=== PATIENT | female | born 1995 | race African-American/Black ===

== ENCOUNTER 2018-01-27 00:26 | Emergency (ER) | payer MEDICAID ==
[~2018-01-27] VITALS: Ht 152.4 cm; Wt 68.2 kg
[~2018-01-27 00:26] MED LIST: ACETAMINOPHEN325 MG; PRENATAL COMPLE1 TAB PO
[2018-01-27 00:40] VITALS: Ht 152.4 cm; Wt 68.2 kg
[2018-01-27] MEDS ORDERED: CYCLOBENZAPRINE10 MG PO (01:34)
[2018-01-27] MEDS ORDERED: ACETAMINOPHEN500 M1 PO (01:34)
[2018-01-27] MEDS ORDERED: IBUPROFEN800 MG PO (01:34)
[2018-01-27 01:41] VITALS: BP 136/88
== END 2018-01-27 01:40 | disposition home or self-care (01) ==
LOC: D.ER 00:26
DX: S63.502A Unspecified sprain of left wrist, initial encounter (principal); X58.XXXA Exposure to other specified factors, initial encounter; Y93.89 Activity, other specified; Y92.89 Other specified places as the place of occurrence of the external cause; J06.9 Acute upper respiratory infection, unspecified